=== PATIENT | male | born 1965 | race Caucasian/White ===

== ENCOUNTER 2017-02-14 19:40 | Emergency (ER) | payer MEDICARE, MEDICAID ==
[2017-02-14] MEDS ORDERED: ONDANSETRON HCL IV 4 MG/2 ML VIAL IVP ONE (19:47)
[2017-02-14] MEDS ORDERED: MORPHINE SULFATE 5 MG/ML PFS IVP ONE (19:47)
--- NOTE | 2017-02-14 19:52 | Emergency Department Record ---
History of Present Illness - General Chief complaint: Pain Stated complaint: LT SIDE RIB PAIN,PT FELL Time Seen by Provider: 02/14/17 19:46 Source: Patient Mode of Arrival: Ambulatory Limitations: No limitations - History of Present Illness Initial comments: 51 yo male presents to ED for evaluation of left sided rib pain following a trip -and-fall incident yesterday. Patient reports that he accidentally tripped over an object outdoors yesterday as a result of his blindness, denies injury to the head or neck. Patient denies health problems at his baseline other than HTN, does not take anticoagulation medication. MD Complaint: Other Onset/Timin -: Hour(s) Location: Left Quality: Aching Consistency: Intermittent Improves with: Nothing Worsens with: Other (movement) Associated Symptoms: Denies other symptoms - Related Data Previous Rx's Medication Instructions Recorded Lidocaine Patch [Lidoderm] 1 ea TOP DAILY PRN #30 patch 02/14/17 Allergies Allergy/AdvReac Type Severity Reaction Status Date / Time No Known Drug Allergies Allergy Unverified 10/08/16 16:26 Review of Systems Constitutional: Denies: Chills, Fever, Malaise, Night sweats Eyes: Denies: Eye discharge, Eye pain ENT: Denies: Congestion, Ear pain Respiratory: Denies: Cough, Dyspnea Cardiovascular: Reports: Chest pain. Denies: Dyspnea on exertion, Palpitations Endocrine: Denies: Fatigue, Heat or cold intolerance Gastrointestinal: Denies: Abdominal pain, Nausea, Vomiting Genitourinary: Denies: Incontinence, Retention Musculoskeletal: Reports: Back pain. Denies: Arthralgia, Gout, Joint swelling Skin: Denies: Bruising, Change in color Neurological: Denies: Abnormal gait, Confusion, Headache, Seizure Psychiatric: Denies: Anxiety Hematological/Lymphatic: Denies: Anemia, Blood Clots Past Medical History - SOCIAL HISTORY Smoking Status: Never smoker - RESPIRATORY Hx Respiratory Disorders: No - CARDIOVASCULAR Hx Cardio Disorders: No - NEURO Hx Neuro Disorders: Yes Hx Neuropathy: Yes - GI Hx GI Disorders: No - Hx Genitourinary Disorders: No - ENDOCRINE Hx Endocrine Disorders: Yes Hx Thyroid Disease: Yes - MUSCULOSKELETAL Hx Musculoskeletal Disorders: No - PSYCH Hx Psych Problems: No - HEMATOLOGY/ONCOLOGY Hx Hematology/Oncology Disorders: No Family Medical History Family Hx Comment (NOT TO BE USED IN PLACE OF ITEMS BELOW): states "can't think of all of it" Physical Exam - General General Appearance: Alert, Oriented x3, Cooperative, Moderate distress Limitations: No limitations - Head Head exam: Atraumatic, Normocephalic, Normal inspection Head exam detail: negative: Abrasion, Contusion, Niño's sign, General tenderness, Hematoma, Laceration - Eye Eye exam: Normal appearance. negative: Conjunctival injection, Periorbital swelling, Periorbital tenderness, Scleral icterus - ENT Ear exam: negative: Auricular hematoma, Auricular trauma Nasal Exam: negative: Active bleeding, Discharge, Dried blood, Foreign body Mouth exam: negative: Drooling, Laceration, Muffled voice, Tongue elevation - Neck Neck exam: Normal inspection. negative: Meningismus, Tenderness - Respiratory Respiratory exam: Normal lung sounds bilaterally, Chest wall tenderness (Left lateral ribs extending posteriorly, no crepitation present). negative: Respiratory distress, Rhonchi, Stridor, Wheezes - Cardiovascular Cardiovascular Exam: Regular rate, Normal rhythm, Normal heart sounds - GI/Abdominal GI/Abdominal exam: Soft. negative: Rebound, Rigid, Tenderness - Rectal Rectal exam: Deferred - exam: Deferred - Extremities Extremities exam: Normal inspection. negative: Calf tenderness, Pedal edema, Tenderness - Back Back exam: Reports: CVA tenderness (L). Denies: CVA tenderness (R) - Neurological Neurological exam: Alert, Normal gait, Oriented X3 - Psychiatric Psychiatric exam: Normal affect, Normal mood - Skin Skin exam: Normal color. negative: Abrasion Type of lesion: negative: abrasion Course - Reevaluation(s) Reevaluation #1: 02/14/17 20:21 Labs reviewed and appears grossly unremarkable for an acute process. Patient is being transported to CT now for imaging studies. Reevaluation #2: 02/14/17 21:25 CT Chest: non-displaced 4th/5th rib fracture anterior-laterally, small pleural effusion left CT Abdomen/Pelvis: No acute traumatic injury noted in the abdomen or pelvis. Patient was updated on all results, reports that his pain symptoms are controlled at this time. Will place lidoderm patch and administer IS with instructions, patient reports that he has Percocet at home for pain as well. Patient was counseled regarding the development of pneumonia following rib fractures, and he verbalizes understanding of all instructions. Medical Decision Making - Lab Data Result diagrams: 02/14/17 19:52 02/14/17 19:52 Disposition Disposition: Discharge Clinical Impression: Rib fractures Qualifiers: Encounter type: initial encounter Rib fracture type: multiple ribs Fracture type: closed Laterality: left Qualified Code(s): S22.42XA - Multiple fractures of ribs, left side, initial encounter for closed fracture Disposition: Home, Self-Care Condition: (2) Stable Instructions: Rib Fracture (ED) Additional Instructions: Return to ED if your symptoms worsen or if you have any concerns. Lidoderm as directed. Continue Percocet as needed for your pain symptoms. Incentive spirometry as directed. Follow-up with you family doctor in 1-3 days as directed. Prescriptions: Lidocaine Patch [Lidoderm] 1 ea TOP DAILY PRN #30 patch PRN Reason: Pain - Mild (1-4) Forms: Patient Portal Access Time of Disposition: 21:24 Quality - Quality Measures Quality Measures: N/A - Blood Pressure Screening Does Patient Have Any of the Following: Active Dx of HTN Blood Pressure Classification: Hypertensive Reading Systolic Measurement: 189 Diastolic Measurement: 92 Screening for High Blood Pressure: Patient Exclusion, Hx of HTN [G9744]
[2017-02-14 19:58] LABS: BASO % 0.4 % (0-6); GRAN % 66.6 % (47-80); HEMATOCRIT 41.5 % (42.0-52.0); HEMOGLOBIN 14.3 gm/dl (14.0-18.0); MEAN CELL VOLUME 88.1 fl (81-97); MEAN CORPUSCULAR HEMOGLOBIN 30.4 pg (27-33); MEAN CORPUSCULAR HGB CONC 34.5 g/dl (32-36); PLATELET COUNT 239 K/uL (130-400); RED BLOOD COUNT 4.71 M/uL (4.40-5.70); RED CELL DISTRIBUTION WIDTH 12.9 % (11.5-14.5); WHITE BLOOD COUNT W/O DIFF 7.4 K/uL (4.2-12.2)
[2017-02-14] MEDS ORDERED: 0.9 % SODIUM CHLORIDE 1000ML 1,000 ML IV SCH (20:00)
[2017-02-14] MEDS ORDERED: HYDROMORPHONE HCL 1MG/ML **SYRINGE IVP ONE (20:12)
[2017-02-14 20:16] LABS: ALB/GLOB RATIO 1.4 (1.1-1.8); ALBUMIN 4.5 g/dL (4.0-5.0); ALKALINE PHOSPHATASE 127 U/L (40-129); ALT/SGPT 18 U/L (<41); AST/SGOT 21 U/L (10.0-50.0); BLOOD UREA NITROGEN 19 mg/dL (6-20); CREATININE 1.3 mg/dL (0.7-1.2); EST GLOMERULAR FILTRATION RATE > 60 mL/min; GLUCOSE,RANDOM 108 mg/dL (74-109); TOTAL PROTEIN 7.7 g/dL (6.6-8.7)
[2017-02-14] MEDS ORDERED: LIDOCAINE 5% PATCH TOP ONE ×3 (21:20→21:30)
--- NOTE | 2017-02-15 15:15 | CT SCAN REPORT ---
EXAM: CT SCAN OF THE CHEST HISTORY: PATIENT HAS LEFT SIDED RIB PAIN, PATIENT FELL. TECHNIQUE: Serial axial CT scan of the chest was performed at 3.75 mm intervals from the thoracic inlet to the dome of the diaphragm without the use of intravenous contrast. Sagittal and coronal reconstructions are provided. Comparison: CT scan of the abdomen and pelvis dated 12/28/11 is provided. FINDINGS: The thoracic inlet is unremarkable. The lung windows demonstrate linear subsegmental atelectasis versus scarring versus infiltrate at the left posterior costophrenic angle. Follow-up PA and lateral views of the chest can obtained until resolution of findings. The heart size and contour is within normal limits. The contour and caliber of the noncontrasted thoracic aorta is unremarkable. There is no CT evidence of mediastinal, axillary, or hilar lymphadenopathy. Several subcentimeter lymph nodes are identified within the paratracheal space. These findings may be reactive. Axial images through the upper abdomen demonstrate the visualized liver and bilateral adrenal glands to be unremarkable. Contour deformity of the spleen is noted which appears similar to the prior CT scan. Bone windows demonstrate several acute left sided rib fractures involving the left anterolateral fourth and fifth ribs. No pneumothorax is noted. IMPRESSION: 1. MULTIPLE ACUTE RIB FRACTURES OF THE LEFT ANTEROLATERAL UPPER RIBS ARE NOTED DISCUSSED ABOVE. 2. LEFT POSTERIOR LOWER LOBE MILD PASSIVE ATELECTASIS AND/OR INFILTRATE WITH SMALL LEFT SIDED PLEURAL EFFUSION. NO PNEUMOTHORAX IS NOTED. JOB NUMBER: [id number] [facility]
--- NOTE | 2017-02-16 08:14 | CT SCAN REPORT ---
EXAM: CT SCAN OF THE ABDOMEN AND PELVIS HISTORY: PATIENT HAS HISTORY OF FALL ONTO THE LEFT SIDE. RIB PAIN. TECHNIQUE: Serial axial CT scan of the abdomen and pelvis was performed at 3.75 mm intervals from the dome of the diaphragm down to the pubic symphysis following the intravenous administration of 100 ml of Omnipaque 300. Comparison: CT scan of the abdomen and pelvis dated 12/28/11 is provided. FINDINGS: The lung windows of the lung bases demonstrate linear subsegmental atelectasis and/or infiltrate at the left lung base with small left sided pleural effusion. No pneumothorax is noted. The visualized heart size and contour is within normal limits. The liver, pancreas, and bilateral adrenal glands demonstrate normal contour, size and attenuation. The spleen demonstrates irregular contour with dystrophic calcification at its superior margin. This finding is unchanged with respect to the prior examination and may be related to prior trauma. The right kidney is unremarkable. There is contour deformity of the mid pole and inferior pole of the left kidney which appears similar to the prior CT scan. Differential considerations include prior infarct and/or trauma. There is no CT evidence of hydronephrosis, hydroureter, or renal or ureteral calculi. The contour, caliber, and flow within the abdominal aorta is within normal limits. There is no CT evidence of retroperitoneal, pelvic, or inguinal lymphadenopathy. The bowel gas pattern is nonspecific and nonobstructive. Appendicolith is again identified. There is no CT evidence of free intraperitoneal fluid or free intraperitoneal air. Postoperative changes in the region of the gastroesophageal junction are again identified. Multiple prominent lymph nodes are identified within the root of the mesentery with subtle mesenteric fat stranding. This finding appears similar to the prior CT scan and may be related to mesenteric panniculitis. Clinical correlation is recommended. The urinary bladder is unremarkable. Other pelvic soft tissues are unremarkable. Bone windows demonstrate no CT evidence of an acute fracture or dislocation of the visualized osseous structures of the abdomen or pelvis. IMPRESSION: 1. IRREGULAR CONTOUR OF THE SPLEEN IS CHRONIC AND APPEARS UNCHANGED WITH RESPECT TO THE PRIOR EXAMINATION. THIS MAY BE RELATED TO PRIOR TRAUMA. 2. IRREGULAR CONTOUR OF THE LEFT KIDNEY IS ALSO UNCHANGED WITH RESPECT TO THE PRIOR CT SCAN AND IS LIKELY THE RESULT OF PRIOR TRAUMA. 3. NO CT EVIDENCE OF A NEW, ACUTE INTRAABDOMINAL PROCESS. 4. SEVERAL SUBCENTIMETER LYMPH NODES ARE IDENTIFIED WITHIN THE CENTRAL ROOT OF THE MESENTERY WITH FAT STRANDING. THIS FINDING APPEARS SIMILAR TO THE PRIOR EXAMINATION AND MAY BE THE RESULT OF MESENTERIC PANNICULITIS. CLINICAL CORRELATION IS RECOMMENDED. 5. NO CT EVIDENCE OF A FRACTURE OR DISLOCATION OF THE VISUALIZED OSSEOUS STRUCTURES OF THE ABDOMEN AND PELVIS. JOB NUMBER: [id number] [facility]
== END 2017-02-14 21:32 | disposition home or self-care (01) ==
LOC: ER 19:40
DX: S22.42XA Multiple fractures of ribs, left side, initial encounter for closed fracture (principal); W01.0XXA Fall on same level from slipping, tripping and stumbling without subsequent striking against object, initial encounter; I10 Essential (primary) hypertension
CPT/HCPCS: 99284 ×2; 96374; 96375; 85025; 80053; 71250; 74177; 94010; Q9967; J2405; J2270; J1170; J7030

== ENCOUNTER 2017-11-03 18:07 | Emergency (ER) | payer MEDICARE, MEDICAID ==
[2017-11-03] MEDS ORDERED: 0.9 % SODIUM CHLORIDE 1,000 ML BAG IV ONE ×2 (18:29→18:30)
--- NOTE | 2017-11-03 18:36 | Emergency Department Record ---
History of Present Illness - General Chief Complaint: Abdominal Pain Stated Complaint: NEAR SYNCOPE DIZZINESS Time Seen by Provider: 11/03/17 18:26 Source: Patient Mode of Arrival: EMS Limitations: No limitations - History of Present Illness Initial Comments: pt was out on asphalt all day cooking in a cooker in 90 degree temperature and started feeling dizzy, lightheaded. pt works for a restaurant. he denies cp. he has a mild headache MD Complaint: Other Onset/Timin -: Hour(s) Severity: Mild Improves With: Nothing Worsens With: Nothing Associated Symptoms: Denies other symptoms - Related Data Home Medications Medication Instructions Recorded Confirmed Last Taken Cholecalciferol (Vitamin D3) 5,000 unit PO DAILY 11/03/17 11/03/17 11/03/17 [Vitamin D3] Montelukast Sodium [Singulair] 10 mg PO DAILY 11/03/17 11/03/17 11/03/17 Allergies Allergy/AdvReac Type Severity Reaction Status Date / Time No Known Drug Allergies Allergy Verified 11/03/17 18:26 Travel Screening - Travel/Exposure Within Last 30 Days Have you traveled within the last 30 days?: No - Travel/Exposure Within Last Year Have you traveled outside the [place] in the last year?: No - Additonal Travel Details Have you been exposed to anyone with a communicable illness?: No - Travel Symptoms Symptom Screening: None Review of Systems Reviewed: No additional complaints except as noted below Constitutional: Reports: As per HPI, Weakness. Denies: Chills, Fever, Malaise, Night sweats, Weight change Eyes: Reports: As per HPI. Denies: Eye discharge, Eye pain, Photophobia, Vision change ENT: Reports: As per HPI. Denies: Congestion, Dental pain, Ear pain, Epistaxis , Hearing loss, Throat pain Respiratory: Reports: As per HPI. Denies: Cough, Dyspnea, Hemoptysis, Stridor, Wheezes Cardiovascular: Reports: As per HPI. Denies: Arrhythmia, Chest pain, Dyspnea on exertion, Edema, Murmurs, Orthopnea, Palpitations, Paroxysmal nocturnal dyspnea, Rheumatic Fever, Syncope Endocrine: Reports: As per HPI. Denies: Fatigue, Heat or cold intolerance, Polydipsia, Polyuria Gastrointestinal: Reports: As per HPI. Denies: Abdominal pain, Constipation, Diarrhea, Hematemesis, Hematochezia, Melena, Nausea, Vomiting Genitourinary: Reports: As per HPI. Denies: Dysuria, Frequency, Hematuria, Incontinence, Retention, Testicular pain, Testicular mass, Urgency Musculoskeletal: Reports: As per HPI. Denies: Arthralgia, Back pain, Gout, Joint swelling, Myalgia, Neck pain Skin: Reports: As per HPI. Denies: Bruising, Change in color, Change in hair/ nails, Lesions, Pruritus, Rash Neurological: Reports: As per HPI, Headache. Denies: Abnormal gait, Confusion, Numbness, Paresthesias, Seizure, Tingling, Tremors, Vertigo, Weakness Psychiatric: Reports: As per HPI. Denies: Anxiety, Auditory hallucinations, Depression, Homicidal thoughts, Suicidal thoughts, Visual hallucinations Hematological/Lymphatic: Reports: As per HPI. Denies: Anemia, Blood Clots, Easy bleeding, Easy bruising, Swollen glands Past Medical History - SOCIAL HISTORY Smoking Status: Never smoker Alcohol Use: Occasional Drug Use: None - RESPIRATORY Hx Respiratory Disorders: No - CARDIOVASCULAR Hx Cardio Disorders: Yes Hx Hypertension: Yes - NEURO Hx Neuro Disorders: Yes Hx Neuropathy: Yes - GI Hx GI Disorders: Yes Comment:: bariatric surgery - Hx Genitourinary Disorders: No - ENDOCRINE Hx Endocrine Disorders: Yes Hx Diabetes: Yes (resolved) Hx Thyroid Disease: Yes - MUSCULOSKELETAL Hx Musculoskeletal Disorders: No - PSYCH Hx Psych Problems: No - HEMATOLOGY/ONCOLOGY Hx Hematology/Oncology Disorders: No Comment:: note: legally blind Family Medical History Any Significant Family History?: No Family Hx Comment (NOT TO BE USED IN PLACE OF ITEMS BELOW): states "can't think of all of it" Physical Exam - General General Appearance: Alert, Oriented x3, Cooperative, Mild distress - Head Head exam: Normal inspection - Eye Eye exam: Normal appearance, PERRL, EOMI Pupils: Normal accommodation - ENT ENT exam: Normal exam, Mucous membranes dry, Normal external ear exam, Normal orophraynx Ear exam: Normal external inspection. negative: External canal tenderness Nasal Exam: Normal inspection. negative: Discharge, Sinus tenderness Mouth exam: Normal external inspection, Tongue normal Teeth exam: Normal inspection. negative: Dental caries Throat exam: Normal inspection. negative: Tonsillar erythema, Tonsillar exudate - Neck Neck exam: Normal inspection, Full ROM. negative: Tenderness - Respiratory Respiratory exam: Normal lung sounds bilaterally. negative: Respiratory distress - Cardiovascular Cardiovascular Exam: Regular rate, Normal rhythm, Normal heart sounds - GI/Abdominal GI/Abdominal exam: Soft, Normal bowel sounds. negative: Tenderness - Rectal Rectal exam: Deferred - exam: Deferred - Extremities Extremities exam: Normal inspection, Full ROM, Normal capillary refill. negative: Tenderness - Back Back exam: Reports: Normal inspection, Full ROM. Denies: Muscle spasm, Rash noted, Tenderness - Neurological Neurological exam: Alert, CN II-XII intact, Normal gait, Oriented X3 - Psychiatric Psychiatric exam: Normal affect, Normal mood - Skin Skin exam: Dry, Intact, Normal color, Warm Course Vital Signs 11/03/17 18:13 Temperature 98.5 F Pulse Rate 77 Respiratory 16 Rate Blood Pressure 97/46 Pulse Ox 96 Medical Decision Making - Lab Data Result diagrams: 11/03/17 18:44 11/03/17 18:44 Disposition Disposition: Transfer Clinical Impression: Renal failure (ARF), acute on chronic Qualifiers: Acute renal failure type: unspecified Chronic kidney disease stage: unspecified stage Qualified Code(s): N17.9 - Acute kidney failure, unspecified; N18.9 - Chronic kidney disease, unspecified Disposition: [facility] Reason For Transfer: renal failure Accepting Physician: dr garcia Time Discussed w/Accepting Physician: 21:08 Quality - Quality Measures Quality Measures: N/A - Blood Pressure Screening Does Patient Have Any of the Following: No Blood Pressure Classification: Normal BP Reading Systolic Measurement: 97 Diastolic Measurement: 46 Screening for High Blood Pressure: < Normal BP, F/U Not Required > [G8783]
[2017-11-03 18:47] LABS: BASO % 0.4 % (0-6); EOS % 1.7 % (0-6); GRAN % 56.2 % (47-80); HEMATOCRIT 38.4 % (42.0-52.0); HEMOGLOBIN 12.9 gm/dl (14.0-18.0); LYMPH % 32.2 % (16-45); MEAN CELL VOLUME 91.4 fl (81-97); MEAN CORPUSCULAR HEMOGLOBIN 30.7 pg (27-33); MEAN CORPUSCULAR HGB CONC 33.6 g/dl (32-36); MEAN PLATELET VOLUME 11.4 fl (7.4-10.4); MONO % 9.5 % (0-9); PLATELET COUNT 290 K/uL (130-400); RED CELL DISTRIBUTION WIDTH 13.1 % (11.5-14.5); WHITE BLOOD COUNT W/O DIFF 13.8 K/uL (4.2-12.2)
[2017-11-03 18:59] LABS: CREATININE 4.3 mg/dL (0.7-1.2)
[2017-11-03 19:14] LABS: URINE APPEARANCE CLEAR; URINE BILIRUBIN NEGATIVE (NEGATIVE); URINE BLOOD NEGATIVE (NEGATIVE); URINE COLOR YELLOW; URINE GLUCOSE (UA) NEGATIVE (NEGATIVE); URINE KETONE TRACE (NEGATIVE); URINE LEUKOCYTE ESTERASE NEGATIVE (NEGATIVE); URINE NITRITE NEGATIVE (NEGATIVE); URINE UROBILINOGEN 0.2 E.U./dL (0.20 - 1.00)
== END 2017-11-04 00:35 | disposition short-term general hospital (02) ==
LOC: ER 18:07
DX: I12.9 Hypertensive chronic kidney disease with stage 1 through stage 4 chronic kidney disease, or unspecified chronic kidney disease (principal); N18.9 Chronic kidney disease, unspecified; N17.9 Acute kidney failure, unspecified; R51 Headache; R55 Syncope and collapse; Z98.84 Bariatric surgery status
CPT/HCPCS: 80048; 81003; 85025; 99285; J7030

== ENCOUNTER 2019-01-13 11:33 | Emergency (ER) | payer MEDICARE, MEDICAID ==
--- NOTE | 2019-01-13 11:51 | Emergency Department Record ---
History of Present Illness - General Chief complaint: Extremity Problem Stated complaint: FALL/ARM INJURY Time Seen by Provider: 01/13/19 11:41 Source: Patient Mode of Arrival: Ambulatory Limitations: No limitations - History of Present Illness Initial comments: The patient is here due to R shoulder pain. He tripped and fell yesterday onto the R arm injuring his R shoulder. Since he has had R shoulder pain which worsens with ROM of the shoulder. Now intermittently the patient is having shooting pain traveling from the R shoulder to the elbow. He denies any other injury and did not hit his head or injure his neck or ribs. The patient also denies any wrist pain. MD Complaint: Extremity pain, Joint pain Onset/Timin -: Days(s) Location: Right, Shoulder History of Same: Yes (left shoulder tear injury) Radiation: Distal Severity scale (1-10): 1 Quality: Sharp Consistency: Constant Improves with: Nothing Worsens with: Exertion Associated Symptoms: Denies other symptoms - Related Data Home Medications Medication Instructions Recorded Confirmed Last Taken Fluticasone Propionate [Flonase] 1 spray INH BID 01/13/19 01/13/19 Unknown Allergies Allergy/AdvReac Type Severity Reaction Status Date / Time No Known Drug Allergies Allergy Verified 11/03/17 18:26 Travel Screening - Travel/Exposure Within Last 30 Days Have you traveled within the last 30 days?: No - Travel/Exposure Within Last Year Have you traveled outside the [place] in the last year?: No - Additonal Travel Details Have you been exposed to anyone with a communicable illness?: No - Travel Symptoms Symptom Screening: None Review of Systems Constitutional: Denies: Chills, Fever Eyes: Denies: Eye discharge ENT: Denies: Congestion Respiratory: Denies: Cough, Dyspnea Past Medical History - SOCIAL HISTORY Smoking Status: Never smoker Alcohol Use: Rare Drug Use: None - RESPIRATORY Hx Respiratory Disorders: No - CARDIOVASCULAR Hx Cardio Disorders: Yes Hx Hypertension: Yes - NEURO Hx Neuro Disorders: Yes Hx Neuropathy: Yes - GI Hx GI Disorders: Yes Comment:: bariatric surgery - Hx Genitourinary Disorders: No - ENDOCRINE Hx Endocrine Disorders: Yes Hx Diabetes: Yes (resolved) Hx Thyroid Disease: Yes - MUSCULOSKELETAL Hx Musculoskeletal Disorders: No - PSYCH Hx Psych Problems: No - HEMATOLOGY/ONCOLOGY Hx Hematology/Oncology Disorders: No Comment:: note: legally blind Family Medical History Any Significant Family History?: Yes Family Hx Comment (NOT TO BE USED IN PLACE OF ITEMS BELOW): states "can't think of all of it" Physical Exam - General General Appearance: Alert, Oriented x3, Cooperative, No acute distress - Head Head exam: Atraumatic - Neck Neck exam: Normal inspection - Respiratory Respiratory exam: Normal lung sounds bilaterally. negative: Respiratory distress - Cardiovascular Cardiovascular Exam: Regular rate, Normal rhythm, Normal heart sounds - Extremities Extremities exam: Normal inspection, Tenderness (There is mild diffuse R shoulder tenderness.), Other (The R elbow and wrist are nontender and the R arm is NVI.). negative: Full ROM (There is normal ROM of the R shoulder with pain on full flexion, extension and abduction.), Joint swelling - Neurological Neurological exam: Alert. negative: Motor sensory deficit Course Vital Signs 01/13/19 11:35 Temperature 96 F L Pulse Rate 82 Respiratory 18 Rate Blood Pressure 215/112 Pulse Ox 98 - Reevaluation(s) Reevaluation #1: The patient is doing well at this time and his BP is much improved. I did discuss the neg xrays and the need to F/U with his PCP and his Orthopedic surgeon next week. 01/13/19 12:49 Medical Decision Making - Data Complexity MDM Data: X-Ray Ordered and/or Reviewed - Radiology Data Radiology results: Report reviewed (R shoulder: Neg.) Disposition Disposition: Discharge Clinical Impression: Sprain of shoulder, right Qualifiers: Encounter type: initial encounter Shoulder sprain type: unspecified sprain Qualified Code(s): S43.401A - Unspecified sprain of right shoulder joint, initial encounter Disposition: Home, Self-Care Condition: (2) Stable Instructions: Shoulder Sprain (ED) Additional Instructions: Please wear the sling for a week and use your home pain medicines as needed. Use ice to the shoulder the next 2 days. Please see your family doctor next week for recheck of your blood pressure and also your Orthopedic doctor for the R shoulder. Forms: Patient Portal Access Time of Disposition: 12:51 Quality - Quality Measures Quality Measures: N/A - Blood Pressure Screening View Details: Yes Does Patient Have Any of the Following: Active Dx of HTN Blood Pressure Classification: Hypertensive Reading Systolic Measurement: 215 Diastolic Measurement: 112 Screening for High Blood Pressure: Patient Exclusion, Hx of HTN [G9744]
[2019-01-13] MEDS ORDERED: HYDROCODONE/APAP 7.5/325MG TABLET PO ONE (12:08)
--- NOTE | 2019-01-13 22:11 | RADIOLOGY REPORT ---
EXAM: SHOULDER, RIGHT HISTORY: THE PATIENT HAS PAIN IN THE RIGHT SHOULDER. TECHNIQUE: Three views of the right shoulder are provided along with a comparison study of the left shoulder dated 03/20/2016. FINDINGS: There is no radiographic evidence of a fracture or dislocation of the right shoulder. Acromioclavicular joint appears within normal limits. No significant soft tissue abnormalities are visualized. The visualized right hemithorax demonstrates a healed right-sided rib fracture. IMPRESSION: NO RADIOGRAPHIC EVIDENCE OF AN ACUTE PROCESS INVOLVING THE RIGHT SHOULDER. [facility]: [id number] [facility]
== END 2019-01-13 13:00 | disposition home or self-care (01) ==
LOC: ER 11:33
DX: S43.401A Unspecified sprain of right shoulder joint, initial encounter (principal); W01.0XXA Fall on same level from slipping, tripping and stumbling without subsequent striking against object, initial encounter; Y92.007 Garden or yard of unspecified non-institutional (private) residence as the place of occurrence of the external cause; I10 Essential (primary) hypertension
CPT/HCPCS: 99283; 99284